=== PATIENT | male | born 1955 ===

== ENCOUNTER 2020-10-11 12:31 | Emergency (ER) | payer OTHER ==
--- NOTE | 2020-10-11 13:34 | Event Note ---
ED Screening Note ED Screening Note: Patient presents for left ear discomfort and fullness and tinnitus that began last night He states last night he put a few drops of warm water in his ear He states that this morning when he woke up and went to the bathroom he began having dizziness He states that it happened about 3 or 4 times He states that it just lasted for a couple seconds He states he has a mild headache He denies any speech disturbance, vision changes, numbness, weakness, chest pain, shortness of breath, fever, nausea, vomiting, diarrhea He denies any past medical history He denies any history of hypertension No allergies to medicines Alert and oriented x4, cranial nerves II through XII intact, normal [id number]-[id number], normal gait, 5 out of 5 muscle strength in the bilateral upper extremities and lower extremities, sensation intact throughout, no focal neuro deficit TMs and canals appear normal bilaterally This initial assessment/diagnostic orders/clinical plan/treatment(s) is/are subject to change based on patients health status, clinical progression and re- assessment by fellow clinical providers in the ED. Further treatment and workup at subsequent clinical providers discretion. Patient/guardian urged not to elope from the ED as their condition may be serious if not clinically assessed and managed. Initial orders include: Labs, EKG, urine, CT head
[2020-10-11 14:01] LABS: Mucus,Urine FEW /HPF
[2020-10-11 14:02] LABS: Bilirubin,Urine NEG (Negative); Blood,Urine NEG (Negative); Color,Urine Yellow (Yellow); Protein,Urine <15 mg/dL mg/dL (Negative); Urobilinogen,Urine < 2.0 mg/dL (<2.0)
[2020-10-11 14:05] LABS: Basophils % (Auto) 0.5 % (0.0-1.8); Eosinophils % (Auto) 0.3 % (0.0-4.3); Hematocrit 41.6 % (35.5-45.6); Hemoglobin 14.6 gm/dl (11.8-15.2); Lymphocytes # (Auto) 0.6 K/mm3 (1.2-5.4); Lymphocytes % (Auto) 8.1 % (13.4-35.0); Mean Corpuscular HGB Conc 35 % (32-34); Mean Corpuscular Volume 90 fl (84-94); Monocytes # (Auto) 0.3 K/mm3 (0.0-0.8); Monocytes % (Auto) 3.4 % (0.0-7.3); Platelet Count 191 K/mm3 (140-440); Red Blood Count 4.64 M/mm3 (3.65-5.03); Red Cell Distribution Width 13.5 % (13.2-15.2)
[2020-10-11 14:28] LABS: Alanine Aminotransferase 15 units/L (7-56); Albumin 4.5 g/dL (3.9-5); Blood Urea Nitrogen 13 mg/dL (9-20); Calcium 8.7 mg/dL (8.4-10.2); Hemolysis Index 5
[2020-10-11 14:31] LABS: BUN/Creatinine Ratio 19
--- NOTE | 2020-10-11 15:24 | Cat Scan Report ---
CT BRAIN: 10/11/2020 INDICATION / CLINICAL INFORMATION: dizziness, mild headache, left ear tinnitus. COMPARISON: None available. FINDINGS: BRAIN/INTRACRANIAL STRUCTURES: Unenhanced CT images of the brain demonstrate no evidence of acute int racranial abnormality. Ventricles and sulci are normal in size and shape for a patient of this age. There is no evidence of hemorrhage or mass. There are no abnormal extra-axial fluid collections. EXTRACRANIAL STRUCTURES: Unremarkable. IMPRESSION: No significant abnormality. All CT scans at this location are performed using dose reduction to ALARA by means of automated expos ure control. Signer Name: Pipe Lundberg MD Signed: 10/11/2020 3:20 PM Workstation Name: [id number]
[2020-10-11] MEDS ORDERED: MECLIZINE 25 MG TAB PO ONE (16:43)
--- NOTE | 2020-10-11 16:48 | Emergency Department Report ---
ED Neuro Deficit HPI - General Chief Complaint: Dizziness Stated Complaint: DIZZINESS Time Seen by Provider: 10/11/20 13:30 Source: patient Mode of arrival: Ambulatory Limitations: No Limitations - History of Present Illness Initial Comments: Chief complaint: Dizziness HPI: This is a healthy 62-year-old male with history of vertigo who presents with room spinning vertigo sensation and left ear ringing. Patient was diagnosed with vertigo 3 to 4 years ago in [place]. He was given medicine at that time which did improve his symptoms. Patient awakened this morning with room spinning sensation. Vertigo has subsided. However when he leans his head back the symptoms are reproduced. He denies difficulty walking. He denies paralysis. Denies trouble speaking. He denies blurry vision. He denies decreased hearing. He states that he has mild posterior achy headache. -: Gradual Location: other (Vertigo) History of same: Yes Place: home Severity: mild Improves With: time Worsens With: none On Anticoagulants: No Context: other (Patient awakened this morning) Associated Symptoms: denies other symptoms Treatments Prior to Arrival: none - Related Data Home Medications: Previous Rx's Medication Instructions Recorded Last Taken Type Meclizine [Antivert] 25 mg PO TID PRN #30 tablet 10/11/20 Unknown Rx Allergies/Adverse Reactions: Allergies Allergy/AdvReac Type Severity Reaction Status Date / Time No Known Allergies Allergy Verified 10/11/20 12:41 ED Review of Systems ROS: Stated complaint: DIZZINESS Other details as noted in HPI Comment: All other systems reviewed and negative Constitutional: denies: fever, malaise ENT: other (Tinnitus) Respiratory: denies: cough, shortness of breath Cardiovascular: denies: chest pain Gastrointestinal: denies: abdominal pain Neurological: vertigo. denies: headache, weakness, numbness, paresthesias, confusion, abnormal gait ED Past Medical Hx - Past Medical History Previous Medical History?: Yes Additional medical history: Vertigo - Surgical History Past Surgical History?: No - Social History Smoking Status: Former Smoker Substance Use Type: None - Medications Home Medications: Home Medications Medication Instructions Recorded Confirmed Last Taken Type Meclizine [Antivert] 25 mg PO TID PRN #30 tablet 10/11/20 Unknown Rx ED Neuro Physical Exam - General Limitations: No Limitations General appearance: alert, in no apparent distress, other (Well-appearing steady gait) Suspected Stroke: No - Head Head exam: Present: atraumatic, normocephalic - Eye Eye exam: Present: normal appearance - ENT ENT exam: Present: mucous membranes moist, other (Left TM normal without impaction or effusion) - Neck Neck exam: Present: normal inspection, full ROM - Respiratory Respiratory exam: Present: normal lung sounds bilaterally. Absent: respiratory distress, wheezes, rales, rhonchi - Cardiovascular Cardiovascular Exam: Present: regular rate, normal rhythm, normal heart sounds. Absent: systolic murmur, diastolic murmur, rubs, gallop - GI/Abdominal GI/Abdominal exam: Present: soft, normal bowel sounds. Absent: distended, tenderness, guarding, rebound - Rectal Rectal exam: Present: deferred - Extremities Exam Extremities exam: Present: normal inspection - Back Exam Back exam: Present: normal inspection - Neurological Exam Neurological exam: Present: alert, oriented X3, CN II-XII intact, normal gait, motor sensory deficit, reflexes normal - NIHSS Assessment Interval: Baseline 1a. Level of Consciousness: alert/keenly responsive 1b. LOC Questions: answers both correctly 1c. LOC Commands: performs tasks correctly 2. Best Gaze: normal 3. Visual: no visual loss 4. Facial Palsy: normal symmetrical movement 5b. Motor Arm Right: no drift 5a. Motor Arm Left: no drift 6a. Motor Leg Left: no drift 6b. Motor Leg Right: no drift 7. Limb Ataxia: absent 8. Sensory: normal 9. Best Language: no aphasia 10. Dysarthria: normal 11. Extinction/Inattention: no abnormality Total Score: 0 Stroke Severity: No Stroke Symptoms - Psychiatric Psychiatric exam: Present: normal affect, normal mood - Skin Skin exam: Present: warm, dry, intact, normal color. Absent: rash ED Course Vital Signs 10/11/20 12:41 Temperature 98.8 F Pulse Rate 82 Respiratory 18 Rate Blood Pressure 160/109 O2 Sat by Pulse 97 Oximetry - Lab Data Result diagrams: 10/11/20 13:41 10/11/20 13:41 Lab Results 10/11/20 10/11/20 10/11/20 Range/Units 13:41 13:41 Unknown WBC 7.9 (4.5-11.0) K/mm3 RBC 4.64 (3.65-5.03) M/mm3 Hgb 14.6 (11.8-15.2) gm/dl Hct 41.6 (35.5-45.6) % MCV 90 (84-94) fl MCH 32 (28-32) pg MCHC 35 H (32-34) % RDW 13.5 (13.2-15.2) % Plt Count 191 (140-440) K/mm3 Lymph % (Auto) 8.1 L (13.4-35.0) % Story % (Auto) 3.4 (0.0-7.3) % Eos % (Auto) 0.3 (0.0-4.3) % Baso % (Auto) 0.5 (0.0-1.8) % Lymph # (Auto) 0.6 L (1.2-5.4) K/mm3 Story # (Auto) 0.3 (0.0-0.8) K/mm3 Eos # (Auto) 0.0 (0.0-0.4) K/mm3 Baso # (Auto) 0.0 (0.0-0.1) K/mm3 Seg Neutrophils % 87.7 H (40.0-70.0) % Seg Neutrophils # 6.9 (1.8-7.7) K/mm3 Sodium 138 (137-145) mmol/L Potassium 4.7 (3.6-5.0) mmol/L Chloride 101.3 (98-107) mmol/L Carbon Dioxide 27 (22-30) mmol/L Anion Gap 14 mmol/L BUN 13 (9-20) mg/dL Creatinine 0.7 L (0.8-1.3) mg/dL Estimated GFR > 60 ml/min BUN/Creatinine Ratio 19 % Glucose 109 H (75-100) mg/dL Calcium 8.7 (8.4-10.2) mg/dL Magnesium 1.90 (1.7-2.3) mg/dL Total Bilirubin 0.40 (0.1-1.2) mg/dL AST 17 (5-40) units/L ALT 15 (7-56) units/L Alkaline Phosphatase 111 (35-129) units/L Total Creatine Kinase 61 (55-170) units/L Troponin T < 0.010 (0.00-0.029) ng/mL Total Protein 6.7 (6.3-8.2) g/dL Albumin 4.5 (3.9-5) g/dL Albumin/Globulin Ratio 2.0 % Urine Color Yellow (Yellow) Urine Turbidity Clear (Clear) Urine pH 7.0 (5.0-7.0) Ur Specific [place] 1.016 (1.003-1.030) Urine Protein <15 mg/dl (Negative) mg/dL Urine Glucose (UA) Neg (Negative) mg/dL Urine Ketones Neg (Negative) mg/dL Urine Blood Neg (Negative) Urine Nitrite Neg (Negative) Ur Reducing Substances Not Reportable Urine Bilirubin Neg (Negative) Urine Ictotest Not Reportable Urine Urobilinogen < 2.0 (<2.0) mg/dL Ur Leukocyte Esterase Neg (Negative) Urine WBC (Auto) 1.0 (0.0-6.0) /HPF Urine RBC (Auto) 3.0 (0.0-6.0) /HPF U Epithel Cells (Auto) < 1.0 (0-13.0) /HPF Urine Mucus Few /HPF - EKG Data -: EKG Interpreted by Ne EKG shows normal: sinus rhythm, axis, intervals, QRS complexes, ST-T waves Rate: normal Interpretation: normal EKG 10/11/20 16:48 EKG obtained 1358 EKG interpreted by ga Normal sinus rhythm normal rate normal axis normal intervals no ST elevation no ST-T signs of ischemia normal EKG rate 60 bpm - Radiology Data Radiology results: report reviewed Patient Name: ASHLEY MELCHOR Gender: Male Date of : 1955 Referring Provider: PILY DHILLON Organization: [facility] Accession Number: [id number] Requested Date: October 11, 2020 13:30 Report Status: Final Requested Procedure: 1 Procedure Description: CT head/brain wo con Modality: CT Findings Reporting MD: Pipe Lundberg Dictation Time: October 11, 2020 14:20 High Lift Operator: Not available Placement Specialist Date: CT BRAIN: 10/11/2020 INDICATION / CLINICAL INFORMATION: dizziness, mild headache, left ear tinnitus. COMPARISON: None available. FINDINGS: BRAIN/INTRACRANIAL STRUCTURES: Unenhanced CT images of the brain demonstrate no evidence of acute intracranial abnormality. Ventricles and sulci are normal in size and shape for a patient of this age. There is no evidence of hemorrhage or mass. There are no abnormal extra-axial fluid collections. EXTRACRANIAL STRUCTURES: Unremarkable. IMPRESSION: No significant abnormality. All CT scans at this location are performed using dose reduction to ALARA by means of automated exposure control. Signer Name: Pipe Lundberg MD Signed: 10/11/2020 2:20 PM Workstation Name: [id number] - Medical Decision Making Benign positional vertigo: Patient prescribed meclizine, no evidence of CVA or intracranial mass. CT head without acute abnormality according radiology impression. Considering patient has tinnitus, Mnire's disease is a consideration. Patient referred to ENT specialist. EKG labs within normal limits. Patient does not have cardiovascular risk factors which would make him at risk for CVA. Critical care attestation.: If time is entered above; I have spent that time in minutes in the direct care of this critically ill patient, excluding procedure time. ED Disposition Clinical Impression: Benign positional vertigo Disposition: - TO HOME OR SELFCARE Is pt being admited?: No Does the pt Need Aspirin: No Condition: Stable Instructions: Benign Positional Vertigo, How to Perform the Jason Maneuver Prescriptions: Meclizine [Antivert] 25 mg PO TID PRN #30 tablet PRN Reason: Vertigo Referrals: CONRAD HERNANDEZ MD [Staff Physician] - 3-5 Days PHUC WEEMS MD [Staff Physician] - 3-5 Days MARTA SCOTT MD [Staff Physician] - 3-5 Days FIDE ALONZO MD [Staff Physician] - 3-5 Days SCOT WANG MD [Staff Physician] - 3-5 Days GAMALIEL PISANO MD [Referring] - 3-5 Days Print Language: IVORIAN
[2020-10-11 17:48] VITALS: BP 157/77
--- NOTE | 2020-10-13 17:51 | Electrocardiograph Report ---
[facility] Test Date: 2020-10-11 Test Time: 13:58:46 Pat Name: ASHLEY MELCHOR Department: Room: Gender: M Brim Presser: : 1955 Requested By: PILY DHILLON Order Number: [id number] Reading MD: Yo Winter Measurements Intervals [place] Rate: 60 P: 53 TX: 129 QRS: 47 QRSD: 86 T: 41 QT: 410 QTc: 408 Interpretive Statements Sinus rhythm Normal ECG No previous ECG available for comparison Electronically Signed On 10-13-2020 17:50:53 EDT by Yo Winter
== END 2020-10-11 17:48 | disposition home or self-care (01) ==
LOC: ED 12:31
DX: H81.12 Benign paroxysmal vertigo, left ear (principal); Z87.891 Personal history of nicotine dependence; Z79.899 Other long term (current) drug therapy
CPT/HCPCS: 36415; 70450; 80053; 81001; 82550; 83735; 84484; 85025; 93005